=== PATIENT | male | born 2005 | race Caucasian/White ===

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

== ENCOUNTER 2023-08-24 03:32 | Emergency (ER) | payer OTHER ==
[2023-08-24 03:44] VITALS: RESP 18; TEMP 99.6
[2023-08-24] MEDS: KETOROLAC 15 MG/ML 1 ML VIAL IM STA (04:08)
--- NOTE | 2023-08-24 04:15 | ED ---
General Adult HPI - General Chief complaint: Nausea/Vomiting/Diarrhea Stated complaint: leg pain N/V/D Time Seen by Provider: 08/24/23 03:36 Source: patient, RN notes reviewed, old records reviewed Mode of arrival: ambulatory Limitations: no limitations - History of Present Illness Initial comments: 18-year-old male presenting for evaluation of cough, congestion, fever and myalgia. Patient additionally had episode of vomiting. 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 He has had productive cough and sore throat. He complains of myalgia predominantly in the low back and bilateral legs. - Related Data Home Medications Medication Instructions Recorded Confirmed Lisdexamfetamine Dimesylate 30 mg PO QAM 03/03/18 07/07/18 [Vyvanse] Allergies Allergy/AdvReac Type Severity Reaction Status Date / Time No Known Allergies Allergy Verified 08/24/23 03:42 Review of Systems ROS Statement: Those systems with pertinent positive or pertinent negative responses have been documented in the HPI. ROS Other: All systems not noted in ROS Statement are negative. Past Medical History Past Medical History: No Reported History Additional Past Medical History / Comment(s): hershsprung History of Any Multi-Drug Resistant Organisms: None Reported Additional Past Surgical History / Comment(s): colostomy- reversed Past Psychological History: Anxiety, Depression, No Psychological Hx Reported Smoking Status: Never smoker Past Alcohol Use History: None Reported Past Drug Use History: None Reported General Exam Limitations: no limitations General appearance: alert, in no apparent distress Head exam: Present: atraumatic, normocephalic Eye exam: Present: normal appearance, PERRL ENT exam: Present: normal exam Neck exam: Present: normal inspection. Absent: tenderness, meningismus Respiratory exam: Present: normal lung sounds bilaterally. Absent: respiratory distress, wheezes Cardiovascular Exam: Present: regular rate, normal rhythm GI/Abdominal exam: Present: soft, tenderness (Mild left lower quadrant). Absent: distended, guarding Extremities exam: Present: normal inspection, normal capillary refill. Absent: pedal edema, calf tenderness Neurological exam: Present: alert, oriented X3, CN II-XII intact. Absent: motor sensory deficit Psychiatric exam: Present: normal affect, normal mood Skin exam: Present: warm, dry, intact. Absent: cyanosis, diaphoretic Course Vital Signs 08/24/23 03:39 Temperature 99.6 F Pulse Rate 93 Respiratory 18 Rate Blood Pressure 134/90 O2 Sat by Pulse 100 Oximetry Medical Decision Making - Medical Decision Making Was pt. sent in by a medical professional or institution (KAY Mohamud, [employer] GATH[employer]ER, urgent care, hospital, or residential...) When possible be specific @ -No Did you speak to anyone other than the patient for history (EMS, parent, family, police, friend...)? What history was obtained from this source @ -No Did you review nursing and triage notes (agree or disagree)? Why? @ -I reviewed and agree with nursing and triage notes Were old charts reviewed (outside hosp., previous admission, EMS record, old EKG, old radiological studies, urgent care reports/EKG's, residential records)? Report findings @ -No old charts were reviewed Differential Diagnosis (chest pain, altered mental status, abdominal pain women, abdominal pain men, vaginal bleeding, weakness, fever, dyspnea, syncope, headache, dizziness, GI bleed, back pain, seizure, CVA, palpatations, mental health, musculoskeletal)? @Gastroenteritis, influenza, pharyngitis, pneumonia EKG interpreted by me (3pts min.). @ -As above X-rays interpreted by me (1pt min.). @ -Chest x-ray negative for focal pneumonia, no acute findings. CT interpreted by me (1pt min.). @ -None done U/S interpreted by me (1pt. min.). @ -None done What testing was considered but not performed or refused? (CT, X-rays, U/S, labs)? Why? @ -None What meds were considered but not given or refused? Why? @ -None Did you discuss the management of the patient with other professionals (professionals i.e. KAY Mohamud, K[employer] GATHERER, lab, RT, psych nurse, social service technician, psychosocial rehabilitation counselor, teacher, information assurance officer, employment evaluator/case manager)? Give summary @ -No Was smoking cessation discussed for >3mins.? @ -No Was critical care preformed (if so, how long)? @ -No Were there social determinants of health that impacted care today? How? (Homelessness, low income, unemployed, alcoholism, drug addiction, transportation, low edu. Level, literacy, decrease access to med. care, [place] [facility], rehab)? @ -No Was there de-escalation of care discussed even if they declined (Discuss DNR or withdrawal of care, Hospice)? DNR status @ -No What co-morbidities impacted this encounter? (DM, HTN, Smoking, COPD, CAD, Cancer, CVA, ARF, Chemo, Hep., AIDS, mental health diagnosis, sleep apnea, morbid obesity)? @ -None Was patient admitted / discharged? Hospital course, mention meds given and route, prescriptions, significant lab abnormalities, going to OR and other pertinent info. @ -18-year-old male presenting with congestion, sore throat, cough, nausea vom iting. Patient well-appearing with stable vitals, patient does test negative for influenza, coronavirus. CBC is unremarkable. CMP within normal limits. His urinalysis is negative for infection. Chest x-ray negative for focal pneumonia, no acute findings. Strep swab negative. Undiagnosed new problem with uncertain prognosis? @ -No Drug Therapy requiring intensive monitoring for toxicity (Heparin, Nitro, Insulin, Cardizem)? @ -No Were any procedures done? @ -No Diagnosis/symptom? @ -Nausea vomiting, likely viral syndrome Acute, or Chronic, or Acute on Chronic? @ -Acute Uncomplicated (without systemic symptoms) or Complicated (systemic symptoms)? @ -Default Side effects of treatment? @ -No Exacerbation, Progression, or Severe Exacerbation? @ -No Poses a threat to life or bodily function? How? (Chest pain, [place], [place], pneumonia, PE, COPD, DKA, ARF, appy, cholecystitis, CVA, Diverticulitis, Homicidal, Suicidal, threat to staff... and all critical care pts) @Low risk at this time - Lab Data Result diagrams: 08/24/23 04:36 08/24/23 04:36 Lab Results 08/24/23 08/24/23 08/24/23 Range/Units 03:45 04:36 04:36 WBC 9.4 (4.0-11.0) k/uL RBC 4.79 (4.30-5.90) m/uL Hgb 15.3 (13.0-17.5) gm/dL Hct 43.7 (39.0-53.0) % MCV 91.1 (80.0-100.0) fL MCH 31.9 (25.0-35.0) pg MCHC 35.0 (31.0-37.0) g/dL RDW 11.8 (11.5-15.5) % Plt Count 230 (150-450) k/uL MPV 8.4 Neutrophils % 71 % Lymphocytes % 18 % Monocytes % 6 % Eosinophils % 2 % Basophils % 1 % Neutrophils # 6.6 (1.3-7.7) k/uL Lymphocytes # 1.6 (1.0-4.8) k/uL Monocytes # 0.6 (0-1.0) k/uL Eosinophils # 0.2 (0-0.7) k/uL Basophils # 0.1 (0-0.2) k/uL Sodium (137-145) mmol/L Potassium (3.5-5.1) mmol/L Chloride (98-107) mmol/L Carbon Dioxide (22-30) mmol/L Anion Gap mmol/L BUN (9-20) mg/dL Creatinine (0.66-1.25) mg/dL Est GFR (CKD-EPI)AfAm (>60 ml/min/1.73 sqM) Est GFR (CKD-EPI)NonAf (>60 ml/min/1.73 sqM) Glucose (74-99) mg/dL Calcium (8.4-10.2) mg/dL Total Bilirubin (0.2-1.3) mg/dL AST (17-59) U/L ALT (4-49) U/L Alkaline Phosphatase (38-126) U/L Total Protein (6.3-8.2) g/dL Albumin (3.5-5.0) g/dL Urine Color Light Yellow Urine Appearance Clear (Clear) Urine pH 7.0 (5.0-8.0) Ur Specific [place] 1.022 (1.001-1.035) Urine Protein Negative (Negative) Urine Glucose (UA) Negative (Negative) Urine Ketones Negative (Negative) Urine Blood Negative (Negative) Urine Nitrite Negative (Negative) Urine Bilirubin Negative (Negative) Urine Urobilinogen <2.0 (<2.0) mg/dL Ur Leukocyte Esterase Negative (Negative) Influenza Type A (PCR) Not Detected (Not Detectd) Influenza Type B (PCR) Not Detected (Not Detectd) RSV (PCR) Not Detected (Not Detectd) SARS-CoV-2 (PCR) Not Detected (Not Detectd) Group A Strep (PCR) (Not Detectd) 08/24/23 08/24/23 Range/Units 04:36 04:36 WBC (4.0-11.0) k/uL RBC (4.30-5.90) m/uL Hgb (13.0-17.5) gm/dL Hct (39.0-53.0) % MCV (80.0-100.0) fL MCH (25.0-35.0) pg MCHC (31.0-37.0) g/dL RDW (11.5-15.5) % Plt Count (150-450) k/uL MPV Neutrophils % % Lymphocytes % % Monocytes % % Eosinophils % % Basophils % % Neutrophils # (1.3-7.7) k/uL Lymphocytes # (1.0-4.8) k/uL Monocytes # (0-1.0) k/uL Eosinophils # (0-0.7) k/uL Basophils # (0-0.2) k/uL Sodium 140 (137-145) mmol/L Potassium 3.7 (3.5-5.1) mmol/L Chloride 104 (98-107) mmol/L Carbon Dioxide 26 (22-30) mmol/L Anion Gap 10 mmol/L BUN 13 (9-20) mg/dL Creatinine 0.78 (0.66-1.25) mg/dL Est GFR (CKD-EPI)AfAm >90 (>60 ml/min/1.73 sqM) Est GFR (CKD-EPI)NonAf >90 (>60 ml/min/1.73 sqM) Glucose 82 (74-99) mg/dL Calcium 9.1 (8.4-10.2) mg/dL Total Bilirubin 0.5 (0.2-1.3) mg/dL AST 27 (17-59) U/L ALT 32 (4-49) U/L Alkaline Phosphatase 56 (38-126) U/L Total Protein 7.0 (6.3-8.2) g/dL Albumin 4.2 (3.5-5.0) g/dL Urine Color Urine Appearance (Clear) Urine pH (5.0-8.0) Ur Specific [place] (1.001-1.035) Urine Protein (Negative) Urine Glucose (UA) (Negative) Urine Ketones (Negative) Urine Blood (Negative) Urine Nitrite (Negative) Urine Bilirubin (Negative) Urine Urobilinogen (<2.0) mg/dL Ur Leukocyte Esterase (Negative) Influenza Type A (PCR) (Not Detectd) Influenza Type B (PCR) (Not Detectd) RSV (PCR) (Not Detectd) SARS-CoV-2 (PCR) (Not Detectd) Group A Strep (PCR) NOT DETECTED (Not Detectd) Disposition Clinical Impression: Nausea & vomiting, Viral syndrome Disposition: HOME SELF-CARE Condition: Good Instructions (If sedation given, give patient instructions): Acute Nausea and Vomiting (ED), Viral Syndrome (ED) Is patient prescribed a controlled substance at d/c from ED?: No Referrals: None,Stated [Primary Care Provider] - 1-2 days Tessy Hugo MD [STAFF PHYSICIAN] - 1-2 days Time of Disposition: 06:32
[2023-08-24] MEDS: ONDANSETRON 4 MG/2 ML VIAL IVP STA (04:45)
[2023-08-24] MEDS: SODIUM CHLORIDE 0.9% 1,000 ML IV ONE (04:45)
[2023-08-24 04:57] LABS: Basophils # (A) 0.1 k/uL (0-0.2); Basophils % (A) 1 %; Eosinophils # (A) 0.2 k/uL (0-0.7); Eosinophils % (A) 2 %; HCT 43.7 % (39.0-53.0); HGB 15.3 gm/dL (13.0-17.5); Lymphocytes # (A) 1.6 k/uL (1.0-4.8); Lymphocytes % (A) 18 %; MCH 31.9 pg (25.0-35.0); MCV 91.1 fL (80.0-100.0); Mean Platelet Volume 8.4; Monocytes # (A) 0.6 k/uL (0-1.0); Monocytes % (A) 6 %; Neutrophils # (A) 6.6 k/uL (1.3-7.7); Neutrophils % (A) 71 %; Platelet Count 230 k/uL (150-450); RBC 4.79 m/uL (4.30-5.90); RDW 11.8 % (11.5-15.5); WBC 9.4 k/uL (4.0-11.0)
[2023-08-24 05:06] LABS: ALT 32 U/L (4-49); AST 27 U/L (17-59); African American GFR (CKD) >90 (>60 ml/min/1.73 sqM); Albumin 4.2 g/dL (3.5-5.0); Alkaline Phosphatase 56 U/L (38-126); Anion Gap 10 mmol/L; Appearance,Urine Clear (Clear); Bilirubin,Urine Negative (Negative); Blood Urea Nitrogen 13 mg/dL (9-20); Blood,Urine Negative (Negative); Calcium 9.1 mg/dL (8.4-10.2); Carbon Dioxide 26 mmol/L (22-30); Chloride 104 mmol/L (98-107); Color,Urine Light Yellow; Glucose 82 mg/dL (74-99); Glucose,Urine (UA) Negative (Negative); Ketones,Urine Negative (Negative); Leukocyte Esterase,Urine Negative (Negative); Nitrite,Urine Negative (Negative); Non-African American GFR(CKD) >90 (>60 ml/min/1.73 sqM); Potassium 3.7 mmol/L (3.5-5.1); Protein,Urine Negative (Negative); Sodium 140 mmol/L (137-145); Specific Gravity,Urine 1.022 (1.001-1.035); Total Bilirubin 0.5 mg/dL (0.2-1.3); Urobilinogen,Urine <2.0 mg/dL (<2.0)
[2023-08-24 06:57] VITALS: BP 118/80; PULSE 79
--- NOTE | 2023-08-24 07:21 | XR ---
EXAMINATION TYPE: XR chest 2V DATE OF EXAM: 08/24/2023 COMPARISON: None HISTORY: 18-year-old male with cough TECHNIQUE: PA and lateral views FINDINGS: The cardiomediastinal silhouette, aorta, and pulmonary vasculature are within normal limits. Minimal central peribronchial cuffing. Otherwise, lungs and pleural spaces are clear. IMPRESSION: Minimal central peribronchial cuffing could reflect bronchitis or asthma. Otherwise, no acute cardiop ulmonary process.
== END 2023-08-24 06:46 | disposition home or self-care (01) ==
LOC: EC 03:32
DX: B34.9 Viral infection, unspecified (principal); R10.32 Left lower quadrant pain
CPT/HCPCS: 36415; 87651; 80053; 85025; 81003; 87636; 71046; 99284; 96374; 96361; 96372; J2405; J1885

== ENCOUNTER 2024-03-20 14:27 | Emergency (ER) | payer OTHER ==
[2024-03-20 14:35] VITALS: RESP 18
[2024-03-20 15:13] LABS: Basophils % (A) 0 %; Eosinophils # (A) 0.1 k/uL (0-0.7); Eosinophils % (A) 1 %; HCT 42.3 % (39.0-53.0); HGB 14.7 gm/dL (13.0-17.5); Lymphocytes % (A) 25 %; MCH 31.5 pg (25.0-35.0); MCHC 34.7 g/dL (31.0-37.0); MCV 90.6 fL (80.0-100.0); Mean Platelet Volume 8.6; Monocytes # (A) 0.6 k/uL (0-1.0); Monocytes % (A) 7 %; Neutrophils # (A) 5.1 k/uL (1.3-7.7); Neutrophils % (A) 63 %; Platelet Count 265 k/uL (150-450); RBC 4.67 m/uL (4.30-5.90); RDW 12.1 % (11.5-15.5); WBC 8.1 k/uL (3.8-10.6)
--- NOTE | 2024-03-20 15:15 | ED ---
General Adult HPI - General Chief complaint: Chest Pain Stated complaint: Chest Pain Time Seen by Provider: 03/20/24 14:30 Source: patient, RN notes reviewed Mode of arrival: EMS Limitations: no limitations - History of Present Illness Initial comments: Patient is a 19-year-old male presenting to the emergency department with concerns for chest discomfort. Onset of symptoms was around 1 hour ago. Patient was in an argument with his brother. Patient also drinks too many energy drinks. Patient had 2 so far today as well as 3 coffees. Patient states symptoms have essentially resolved at this time. Patient questions if he may have had a mini stroke years ago when he had an episode of racing heart rate and almost passed out however had no neurological problems otherwise. - Related Data Home Medications Medication Instructions Recorded Confirmed No Known Home Medications 03/20/24 03/20/24 Allergies Allergy/AdvReac Type Severity Reaction Status Date / Time No Known Allergies Allergy Verified 03/20/24 15:49 Review of Systems ROS Statement: Those systems with pertinent positive or pertinent negative responses have been documented in the HPI. ROS Other: All systems not noted in ROS Statement are negative. Constitutional: Denies: fever Eyes: Denies: eye pain ENT: Denies: ear pain Respiratory: Denies: cough, dyspnea Cardiovascular: Reports: as per HPI Endocrine: Denies: fatigue Gastrointestinal: Denies: abdominal pain Musculoskeletal: Denies: back pain Psychiatric: Denies: suicidal thoughts Past Medical History Past Medical History: No Reported History Additional Past Medical History / Comment(s): hershsprung History of Any Multi-Drug Resistant Organisms: None Reported Additional Past Surgical History / Comment(s): colostomy- reversed Past Psychological History: Anxiety, Depression, No Psychological Hx Reported Smoking Status: Never smoker Past Alcohol Use History: None Reported Past Drug Use History: None Reported General Exam Limitations: no limitations General appearance: alert, in no apparent distress Head exam: Present: normocephalic Eye exam: Present: normal appearance, PERRL, EOMI Neck exam: Present: normal inspection Respiratory exam: Present: normal lung sounds bilaterally Cardiovascular Exam: Present: regular rate, normal rhythm, normal heart sounds Expanded Peripheral pulses: 2+: Radial (R), Radial (L), Posterior Tibialis (R), Posterior Tibialis (L) GI/Abdominal exam: Present: soft. Absent: tenderness Extremities exam: Present: normal inspection. Absent: pedal edema, calf tenderness Neurological exam: Present: alert, oriented X3, CN II-XII intact. Absent: motor sensory deficit Expanded Sensory exam: Upper Extremity Light Touch: Normal, Lower Extremity Light Touch: Normal Motor strength exam: RUE: 5, LUE: 5, RLE: 5, LLE: 5 Psychiatric exam: Present: normal affect, normal mood. Absent: suicidal ideation Skin exam: Present: normal color Course Vital Signs 03/20/24 03/20/24 03/20/24 14:28 14:36 16:11 Temperature 99.0 F Pulse Rate 71 95 Pulse Rate [ 74 Business Services Intern ] Respiratory 18 18 Rate Blood Pressure 146/93 125/77 O2 Sat by Pulse 98 98 Oximetry EKG Findings - EKG Results: EKG: interpreted by RAFAELD, sinus rhythm, normal axis, normal QRS, normal ST/T Medical Decision Making - Medical Decision Making Discussion with patient regarding his mental health. Patient does admit to being depressed. Patient denies suicidal ideation and states he would not harm himself. Patient contracts for safety and is willing to follow-up. Was pt. sent in by a medical professional or institution (, PA, RE[employer] OR WIND INSTRUMENT REPAIRER, urgent care, hospital, or [place] [facility]...) When possible be specific @ -No Did you speak to anyone other than the patient for history (EMS, parent, family, police, friend...)? What history was obtained from this source @ -Family is present and helps confirm and is present during discussion regar ding patient's mental health, see above Did you review nursing and triage notes (agree or disagree)? Why? @ -I reviewed and agree with nursing and triage notes Were old charts reviewed (outside hosp., previous admission, EMS record, old EKG, old radiological studies, urgent care reports/EKG's, [place] [facility] records)? Report findings @ -No old charts were reviewed Differential Diagnosis (chest pain, altered mental status, abdominal pain women, abdominal pain men, vaginal bleeding, weakness, fever, dyspnea, syncope, headache, dizziness, GI bleed, back pain, seizure, CVA, palpatations, mental health, musculoskeletal)? @ -Differential Chest Pain: Stable Angina, Unstable Angina, STEMI, NSTEMI Aortic Dissection, Pneumothorax, Musculoskeletal, Esophageal Spasm GERD, Cholecystitis, Pancreatitis, Zoster, this is not meant to be an all-inclusive list. EKG interpreted by me (3pts min.). @ -As above X-rays interpreted by me (1pt min.). @ -None done CT interpreted by me (1pt min.). @ -None done U/S interpreted by me (1pt. min.). @ -None done What testing was considered but not performed or refused? (CT, X-rays, U/S, labs)? Why? @ -None What meds were considered but not given or refused? Why? @ -None Did you discuss the management of the patient with other professionals (shant patton i.e. , PA, RE[employer] WIND INSTRUMENT REPAIRER, lab, RT, psych nurse, social work job titles, national service officer, teacher, ground nuclear weapons assembly officer, case mgr)? Give summary @ -No Was smoking cessation discussed for >3mins.? @ -No Was critical care preformed (if so, how long)? @ -No Were there social determinants of health that impacted care today? How? (Homelessness, low income, unemployed, alcoholism, drug addiction, transportation, low edu. Level, literacy, decrease access to med. care, snf, rehab)? @ -No Was there de-escalation of care discussed even if they declined (Discuss DNR or withdrawal of care, Hospice)? DNR status @ -No What co-morbidities impacted this encounter? (DM, HTN, Smoking, COPD, CAD, Cancer, CVA, ARF, Chemo, Hep., AIDS, mental health diagnosis, sleep apnea, morbid obesity)? @ -None Was patient admitted / discharged? Hospital course, mention meds given and route, prescriptions, significant lab abnormalities, going to OR and other pertinent info. @ -Patient presents with chest discomfort following an argument. Evaluation unremarkable. Patient is symptom-free. Patient will be discharged and recommended follow-up. Patient and family updated Undiagnosed new problem with uncertain prognosis? @ -No Drug Therapy requiring intensive monitoring for toxicity (Heparin, Nitro, Insulin, Cardizem)? @ -No Were any procedures done? @ -No Diagnosis/symptom? @ -Chest pain Acute, or Chronic, or Acute on Chronic? @ -Acute Uncomplicated (without systemic symptoms) or Complicated (systemic symptoms)? @ -Default Side effects of treatment? @ -No Exacerbation, Progression, or Severe Exacerbation? @ -No Poses a threat to life or bodily function? How? (Chest pain, [place], [place], pneumonia, PE, COPD, DKA, ARF, appy, cholecystitis, CVA, Diverticulitis, Homicidal, Suicidal, threat to staff... and all critical care pts) @ -No - Lab Data Result diagrams: 03/20/24 15:02 03/20/24 15:02 Lab Results 03/20/24 03/20/24 03/20/24 Range/Units 15:02 15:02 15:02 WBC 8.1 (3.8-10.6) k/uL RBC 4.67 (4.30-5.90) m/uL Hgb 14.7 (13.0-17.5) gm/dL Hct 42.3 (39.0-53.0) % MCV 90.6 (80.0-100.0) fL MCH 31.5 (25.0-35.0) pg MCHC 34.7 (31.0-37.0) g/dL RDW 12.1 (11.5-15.5) % Plt Count 265 (150-450) k/uL MPV 8.6 Neutrophils % 63 % Lymphocytes % 25 % Monocytes % 7 % Eosinophils % 1 % Basophils % 0 % Neutrophils # 5.1 (1.3-7.7) k/uL Lymphocytes # 2.0 (1.0-4.8) k/uL Monocytes # 0.6 (0-1.0) k/uL Eosinophils # 0.1 (0-0.7) k/uL Basophils # 0.0 (0-0.2) k/uL PT 11.0 (10.0-12.5) sec INR 1.0 (<1.2) APTT 25.7 (22.0-30.0) sec D-Dimer (<0.60) mg/L FEU Sodium 138 (137-145) mmol/L Potassium 3.4 L (3.5-5.1) mmol/L Chloride 102 (98-107) mmol/L Carbon Dioxide 25 (22-30) mmol/L Anion Gap 11 mmol/L BUN 14 (9-20) mg/dL Creatinine 0.83 (0.66-1.25) mg/dL Est GFR (CKD-EPI)AfAm >90 (>60 ml/min/1.73 sqM) Est GFR (CKD-EPI)NonAf >90 (>60 ml/min/1.73 sqM) Glucose 108 H (74-99) mg/dL Calcium 9.5 (8.4-10.2) mg/dL Magnesium 1.9 (1.6-2.3) mg/dL Total Bilirubin 0.7 (0.2-1.3) mg/dL AST 27 (17-59) U/L ALT 17 (4-49) U/L Alkaline Phosphatase 51 (38-126) U/L Troponin I (0.000-0.034) ng/mL Total Protein 7.1 (6.3-8.2) g/dL Albumin 4.5 (3.5-5.0) g/dL 03/20/24 03/20/24 Range/Units 15:02 15:02 WBC (3.8-10.6) k/uL RBC (4.30-5.90) m/uL Hgb (13.0-17.5) gm/dL Hct (39.0-53.0) % MCV (80.0-100.0) fL MCH (25.0-35.0) pg MCHC (31.0-37.0) g/dL RDW (11.5-15.5) % Plt Count (150-450) k/uL MPV Neutrophils % % Lymphocytes % % Monocytes % % Eosinophils % % Basophils % % Neutrophils # (1.3-7.7) k/uL Lymphocytes # (1.0-4.8) k/uL Monocytes # (0-1.0) k/uL Eosinophils # (0-0.7) k/uL Basophils # (0-0.2) k/uL PT (10.0-12.5) sec INR (<1.2) APTT (22.0-30.0) sec D-Dimer 0.18 (<0.60) mg/L FEU Sodium (137-145) mmol/L Potassium (3.5-5.1) mmol/L Chloride (98-107) mmol/L Carbon Dioxide (22-30) mmol/L Anion Gap mmol/L BUN (9-20) mg/dL Creatinine (0.66-1.25) mg/dL Est GFR (CKD-EPI)AfAm (>60 ml/min/1.73 sqM) Est GFR (CKD-EPI)NonAf (>60 ml/min/1.73 sqM) Glucose (74-99) mg/dL Calcium (8.4-10.2) mg/dL Magnesium (1.6-2.3) mg/dL Total Bilirubin (0.2-1.3) mg/dL AST (17-59) U/L ALT (4-49) U/L Alkaline Phosphatase (38-126) U/L Troponin I <0.012 (0.000-0.034) ng/mL Total Protein (6.3-8.2) g/dL Albumin (3.5-5.0) g/dL Disposition Clinical Impression: Chest pain Disposition: HOME SELF-CARE Condition: Stable Instructions (If sedation given, give patient instructions): Chest Pain (ED) Additional Instructions: Please do follow-up with your primary care physician in the next day or 2 for recheck. Also discussed with your primary care physician and therapist for possible psychiatry evaluation or referral. Return for increased chest pain, heart rate, difficulty breathing, thoughts of harming yourself, worsening symptoms or any other concerns. Is patient prescribed a controlled substance at d/c from ED?: No Referrals: Bryant Duarte MD [STAFF PHYSICIAN] - 1-2 days Forms: Outpatient Therapy List, Outpatient Counseling, Community Resources, Area PCPs Time of Disposition: 17:43
[2024-03-20 15:24] LABS: Partial Thromboplastin Time 25.7 sec (22.0-30.0)
[2024-03-20 15:33] LABS: ALT 17 U/L (4-49); AST 27 U/L (17-59); African American GFR (CKD) >90 (>60 ml/min/1.73 sqM); Albumin 4.5 g/dL (3.5-5.0); Alkaline Phosphatase 51 U/L (38-126); Anion Gap 11 mmol/L; Blood Urea Nitrogen 14 mg/dL (9-20); Calcium 9.5 mg/dL (8.4-10.2); Carbon Dioxide 25 mmol/L (22-30); Chloride 102 mmol/L (98-107); Glucose 108 mg/dL (74-99); Magnesium 1.9 mg/dL (1.6-2.3); Non-African American GFR(CKD) >90 (>60 ml/min/1.73 sqM); Potassium 3.4 mmol/L (3.5-5.1); Sodium 138 mmol/L (137-145); Total Bilirubin 0.7 mg/dL (0.2-1.3); Total Protein 7.1 g/dL (6.3-8.2)
--- NOTE | 2024-03-20 16:07 | XR ---
EXAMINATION TYPE: XR chest 2V DATE OF EXAM: 03/20/2024 COMPARISON: 08/24/2023 HISTORY: Chest pain TECHNIQUE: Frontal and lateral views of the chest are obtained. FINDINGS: There is no focal air space opacity, pleural effusion, or pneumothorax seen. The cardiac silhouette size is within normal limits. The osseous structures are intact. IMPRESSION: No acute cardiopulmonary process. [facility], , 03/20/2024 4:05 PM
[2024-03-20 18:20] VITALS: BP 129/64; PULSE 67; TEMP 97.8
== END 2024-03-20 18:18 | disposition home or self-care (01) ==
LOC: EC 14:27
DX: R07.9 Chest pain, unspecified (principal)
CPT/HCPCS: 36415; 71046; 80053; 83735; 84484; 85025; 85379; 85610; 85730; 93005; 99285

== ENCOUNTER 2024-04-19 09:26 | Emergency (ER) | payer OTHER ==
[2024-04-19 09:33] VITALS: TEMP 97.9
[2024-04-19] MEDS: SODIUM CHLORIDE 0.9% 1,000 ML IV STA (09:44)
[2024-04-19 09:50] LABS: Basophils % (A) 0 %; Eosinophils # (A) 0.1 k/uL (0-0.7); Eosinophils % (A) 2 %; HGB 15.3 gm/dL (13.0-17.5); Lymphocytes % (A) 25 %; MCH 31.1 pg (25.0-35.0); MCHC 33.9 g/dL (31.0-37.0); MCV 91.6 fL (80.0-100.0); Mean Platelet Volume 7.9; Monocytes # (A) 0.6 k/uL (0-1.0); Monocytes % (A) 7 %; Neutrophils # (A) 4.9 k/uL (1.3-7.7); Neutrophils % (A) 62 %; Platelet Count 267 k/uL (150-450); RBC 4.92 m/uL (4.30-5.90); RDW 11.8 % (11.5-15.5); WBC 7.9 k/uL (3.8-10.6)
[2024-04-19] MEDS: MECLIZINE 25 MG TAB PO STA (09:50)
[2024-04-19 09:51] VITALS: RESP 18
[2024-04-19 10:06] LABS: ALT 19 U/L (4-49); AST 29 U/L (17-59); African American GFR (CKD) >90 (>60 ml/min/1.73 sqM); Albumin 4.4 g/dL (3.5-5.0); Alkaline Phosphatase 60 U/L (38-126); Anion Gap 8 mmol/L; Blood Urea Nitrogen 15 mg/dL (9-20); Calcium 9.1 mg/dL (8.4-10.2); Carbon Dioxide 26 mmol/L (22-30); Chloride 103 mmol/L (98-107); Glucose 79 mg/dL (74-99); Non-African American GFR(CKD) >90 (>60 ml/min/1.73 sqM); Potassium 3.4 mmol/L (3.5-5.1); Sodium 137 mmol/L (137-145); Total Bilirubin 0.8 mg/dL (0.2-1.3); Total Protein 7.1 g/dL (6.3-8.2)
--- NOTE | 2024-04-19 10:51 | ED ---
Dizziness HPI - General Chief Complaint: Dizziness Stated Complaint: Weakness Time Seen by Provider: 04/19/24 09:29 Source: patient, EMS, RN notes reviewed Mode of arrival: EMS Limitations: no limitations - History of Present Illness Initial Comments: 19-year-old male presents emergency department complaint of dizziness. 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 Patient states that states the room was spinning. It is worse with movement. Patient states he had some palpitations mild chest comfort which is improved. Patient has a history of Hirschsprung's with colostomy and reversal. Patient does admit that has been up for 38 hours straight between 2 jobs and may be fatigue induced. Patient denies any excessive caffeine use. He states he drinks 1 Mountain Dew. - Related Data Previous Rx's Medication Instructions Recorded Meclizine [Antivert] 25 mg PO TID PRN #15 tab 04/19/24 Allergies Allergy/AdvReac Type Severity Reaction Status Date / Time No Known Allergies Allergy Verified 04/19/24 09:34 Review of Systems ROS Statement: Those systems with pertinent positive or pertinent negative responses have been documented in the HPI. ROS Other: All systems not noted in ROS Statement are negative. Past Medical History Past Medical History: No Reported History, Myocardial Infarction ([place]) Additional Past Medical History / Comment(s): hershsprung History of Any Multi-Drug Resistant Organisms: None Reported Additional Past Surgical History / Comment(s): colostomy- reversed Past Psychological History: Anxiety, Depression, No Psychological Hx Reported Smoking Status: Never smoker Past Alcohol Use History: None Reported Past Drug Use History: None Reported General Exam Limitations: no limitations General appearance: alert, in no apparent distress Head exam: Present: atraumatic, normocephalic, normal inspection Eye exam: Present: normal appearance, PERRL, EOMI. Absent: scleral icterus, conjunctival injection, periorbital swelling ENT exam: Present: normal exam, normal oropharynx, mucous membranes moist Neck exam: Present: normal inspection, full ROM. Absent: tenderness, meningismus, lymphadenopathy Respiratory exam: Present: normal lung sounds bilaterally. Absent: respiratory distress, wheezes, rales, rhonchi, stridor Cardiovascular Exam: Present: regular rate, normal rhythm, normal heart sounds. Absent: systolic murmur, diastolic murmur, rubs, gallop, clicks Neurological exam: Present: alert, oriented X3, CN II-XII intact, reflexes normal. Absent: motor sensory deficit Skin exam: Present: warm, dry, intact, normal color. Absent: rash Course Vital Signs 04/19/24 04/19/24 09:29 09:48 Temperature 97.9 F Pulse Rate 63 70 Respiratory 19 18 Rate Blood Pressure 145/71 129/91 O2 Sat by Pulse 98 99 Oximetry EKG Findings - EKG Comments: EKG Findings:: EKG performed at 9: 38 sinus rhythm rate of 62 VT 150 QRS 109 QT/QTc 377/382 - EKG Results: EKG: interpreted by [facility] Medical Decision Making - Medical Decision Making Was pt. sent in by a medical professional or institution (, PA, SOLAR ENERGY SPECIALIST, urgent care, hospital, or group home...) When possible be specific @ -Urgent care Did you speak to anyone other than the patient for history (EMS, parent, family, police, friend...)? What history was obtained from this source @ -No Did you review nursing and triage notes (agree or disagree)? Why? @ -I reviewed and agree with nursing and triage notes Were old charts reviewed (outside hosp., previous admission, EMS record, old EKG, old radiological studies, urgent care reports/EKG's, group home records)? Report findings @ -No old charts were reviewed Differential Diagnosis (chest pain, altered mental status, abdominal pain women, abdominal pain men, vaginal bleeding, weakness, fever, dyspnea, syncope, headache, dizziness, GI bleed, back pain, seizure, CVA, palpatations, mental health, musculoskeletal)? @ -Differential Dizziness: Benign paroxysmal positional Vertigo, Meniere's disease, otitis media, acoustic neuroma, vertebrobasilar insufficiency, cerebellar stroke, encephalitis, hypovolemic, arrhythmia, coronary artery syndrome, anemia, this is not meant to be an all-inclusive list EKG interpreted by me (3pts min.). @ -As above X-rays interpreted by me (1pt min.). @ -None done CT interpreted by me (1pt min.). @ -None done U/S interpreted by me (1pt. min.). @ -None done What testing was considered but not performed or refused? (CT, X-rays, U/S, caren rodriguez)? Why? @ -None What meds were considered but not given or refused? Why? @ -None Did you discuss the management of the patient with other professionals (professionals i.e. , PA, SOLAR ENERGY SPECIALIST, lab, RT, psych nurse, social media content manager, principal investigator, teacher, chief financial officer, binder caser)? Give summary @ -No Was smoking cessation discussed for >3mins.? @ -No Was critical care preformed (if so, how long)? @ -No Were there social determinants of health that impacted care today? How? (Homelessness, low income, unemployed, alcoholism, drug addiction, transportation, low edu. Level, literacy, decrease access to med. care, longterm, rehab)? @ -No Was there de-escalation of care discussed even if they declined (Discuss DNR or withdrawal of care, Hospice)? DNR status @ -No What co-morbidities impacted this encounter? (DM, HTN, Smoking, COPD, CAD, Cancer, CVA, ARF, Chemo, Hep., AIDS, mental health diagnosis, sleep apnea, morbid obesity)? @ -None Was patient admitted / discharged? Hospital course, mention meds given and route, prescriptions, significant lab abnormalities, going to OR and other pertinent info. @ -Charge patient presented for lightheadedness and dizziness. This may be vertigo in nature. He is currently asymptomatic. Patient's laboratory studies unremarkable. Patient blood pressure is unremarkable. Patient does feel improved at this time. Patient discharged in stable condition return parameters discussed Undiagnosed new problem with uncertain prognosis? @ -No Drug Therapy requiring intensive monitoring for toxicity (Heparin, Nitro, Insulin, Cardizem)? @ -No Were any procedures done? @ -No Diagnosis/symptom? @ -Dizziness Acute, or Chronic, or Acute on Chronic? @ -Acute Uncomplicated (without systemic symptoms) or Complicated (systemic symptoms)? @ -Uncomplicated Side effects of treatment? @ -No Exacerbation, Progression, or Severe Exacerbation? @ -No Poses a threat to life or bodily function? How? (Chest pain, [place], [place], pneumonia, PE, COPD, DKA, ARF, appy, cholecystitis, CVA, Diverticulitis, Homicidal, Suicidal, threat to staff... and all critical care pts) @ -No - Lab Data Result diagrams: 04/19/24 09:42 04/19/24 09:42 Lab Results 04/19/24 04/19/24 04/19/24 Range/Units 09:42 09:42 09:42 WBC 7.9 (3.8-10.6) k/uL RBC 4.92 (4.30-5.90) m/uL Hgb 15.3 (13.0-17.5) gm/dL Hct 45.0 (39.0-53.0) % MCV 91.6 (80.0-100.0) fL MCH 31.1 (25.0-35.0) pg MCHC 33.9 (31.0-37.0) g/dL RDW 11.8 (11.5-15.5) % Plt Count 267 (150-450) k/uL MPV 7.9 Neutrophils % 62 % Lymphocytes % 25 % Monocytes % 7 % Eosinophils % 2 % Basophils % 0 % Neutrophils # 4.9 (1.3-7.7) k/uL Lymphocytes # 2.0 (1.0-4.8) k/uL Monocytes # 0.6 (0-1.0) k/uL Eosinophils # 0.1 (0-0.7) k/uL Basophils # 0.0 (0-0.2) k/uL Sodium 137 (137-145) mmol/L Potassium 3.4 L (3.5-5.1) mmol/L Chloride 103 (98-107) mmol/L Carbon Dioxide 26 (22-30) mmol/L Anion Gap 8 mmol/L BUN 15 (9-20) mg/dL Creatinine 0.70 (0.66-1.25) mg/dL Est GFR (CKD-EPI)AfAm >90 (>60 ml/min/1.73 sqM) Est GFR (CKD-EPI)NonAf >90 (>60 ml/min/1.73 sqM) Glucose 79 (74-99) mg/dL Calcium 9.1 (8.4-10.2) mg/dL Magnesium 2.0 (1.6-2.3) mg/dL Total Bilirubin 0.8 (0.2-1.3) mg/dL AST 29 (17-59) U/L ALT 19 (4-49) U/L Alkaline Phosphatase 60 (38-126) U/L Troponin I <0.012 (0.000-0.034) ng/mL Total Protein 7.1 (6.3-8.2) g/dL Albumin 4.4 (3.5-5.0) g/dL Disposition Clinical Impression: Dizziness Disposition: HOME SELF-CARE Condition: Stable Instructions (If sedation given, give patient instructions): Dizziness (ED) Additional Instructions: Please return to the Emergency Department if symptoms worsen or any other concerns. Prescriptions: Meclizine [Antivert] 25 mg PO TID PRN #15 tab PRN Reason: Vertigo Is patient prescribed a controlled substance at d/c from ED?: No Referrals: None,Stated [Primary Care Provider] - 1-2 days Time of Disposition: 10:50
[2024-04-19 11:06] VITALS: BP 127/78; PULSE 75
== END 2024-04-19 11:06 | disposition home or self-care (01) ==
LOC: EC 09:26
DX: R42 Dizziness and giddiness (principal)
CPT/HCPCS: 36415; 80053; 83735; 84484; 85025; 93005; 96360; 99284; 99285

== ENCOUNTER 2024-07-31 18:45 | Emergency (ER) | payer OTHER ==
[2024-07-31 18:53] VITALS: BP 160/97; PULSE 92; RESP 20; TEMP 98.3
[2024-07-31 19:18] LABS: Basophils # (A) 0.1 k/uL (0-0.2); Basophils % (A) 1 %; Eosinophils # (A) 0.1 k/uL (0-0.7); Eosinophils % (A) 1 %; HCT 47.6 % (39.0-53.0); HGB 16.5 gm/dL (13.0-17.5); Lymphocytes # (A) 2.5 k/uL (1.0-4.8); Lymphocytes % (A) 27 %; MCHC 34.7 g/dL (31.0-37.0); MCV 92.2 fL (80.0-100.0); Mean Platelet Volume 7.7; Monocytes # (A) 0.4 k/uL (0-1.0); Monocytes % (A) 4 %; Neutrophils # (A) 6.2 k/uL (1.3-7.7); Neutrophils % (A) 65 %; Platelet Count 259 k/uL (150-450); RBC 5.16 m/uL (4.30-5.90); RDW 12.2 % (11.5-15.5); WBC 9.5 k/uL (3.8-10.6)
--- NOTE | 2024-07-31 19:26 | ED ---
General Adult HPI - General Source: patient, family, RN notes reviewed Mode of arrival: ambulatory Limitations: no limitations <Krissy Yo - Last Filed: 07/31/24 19:41> <Shauna Jerome - Last Filed: 08/08/24 19:52> - General Chief complaint: Chest Pain Stated complaint: Syncope,SOB,L arm pain Time Seen by Provider: 07/31/24 19:26 - History of Present Illness Initial comments: Quick note: 19-year-old male presented to ER for evaluation of syncope. Patient states he was at work at [employer] today when attempting to lift a tire in a squatted position patient reports he felt a fuzzy vision sensation and passed out. He is unsure of head injury and unknown downtime. No blood thinner use. Patient states since then he has been feeling shortness of breath with a tingling sensation to his left upper extremity. (Krissy Yo) 19-year-old male presenting with chief complaint of chest pain. Patient was at work when he had a syncopal episode around 1400 today. He states that this happened when he was trying to lift a tire from a squatted position. No blood thinners. States that just prior he was getting some blurred vision. When he came to he was having some chest pain and difficulty catching his breath. He was also having paresthesia in his extremities. He went to a friend's house who had an inhaler and tried to use it but states that this did not alleviate his p ain. Describes it as a sharp pain. Not made worse with deep breaths or coughing. No lower extremity swelling. No recent surgery or long travel. No nausea vomiting or abdominal pain. No cough congestion or sore throat. No fevers or chills. (Shauna Jerome) - Related Data Previous Rx's Medication Instructions Recorded Meclizine [Antivert] 25 mg PO TID PRN #15 tab 04/19/24 Allergies Allergy/AdvReac Type Severity Reaction Status Date / Time No Known Allergies Allergy Verified 04/19/24 09:34 Review of Systems ROS Other: All systems not noted in ROS Statement are negative. <Krissy Yo - Last Filed: 07/31/24 19:41> ROS Other: All systems not noted in ROS Statement are negative. <Shauna Jerome - Last Filed: 08/08/24 19:52> ROS Statement: Those systems with pertinent positive or pertinent negative responses have been documented in the HPI. Past Medical History Past Medical History: No Reported History, Chest Pain / Angina Additional Past Medical History / Comment(s): hershsprung History of Any Multi-Drug Resistant Organisms: None Reported Additional Past Surgical History / Comment(s): colostomy- reversed Past Psychological History: Anxiety, Depression, No Psychological Hx Reported Smoking Status: Never smoker Past Alcohol Use History: None Reported Past Drug Use History: None Reported <Krissy Yo - Last Filed: 07/31/24 19:41> General Exam Limitations: no limitations <Krissy Yo - Last Filed: 07/31/24 19:41> Limitations: no limitations General appearance: alert, in no apparent distress Head exam: Present: atraumatic, normocephalic, normal inspection Eye exam: Present: normal appearance, EOMI. Absent: periorbital swelling Neck exam: Present: normal inspection. Absent: meningismus Respiratory exam: Present: normal lung sounds bilaterally. Absent: respiratory distress, wheezes, rales, rhonchi, stridor Cardiovascular Exam: Present: regular rate, normal rhythm, normal heart sounds. Absent: systolic murmur, diastolic murmur, rubs, gallop, clicks Extremities exam: Absent: pedal edema Neurological exam: Present: alert, oriented X3 Expanded Eye Response: (4) open spontaneously Motor Response: (6) obeys commands Verbal Response: (5) oriented Milo Total: 15 Psychiatric exam: Present: normal affect, normal mood Skin exam: Present: warm, dry <Shauna Jerome - Last Filed: 08/08/24 19:52> - General Exam Comments Initial Comments: Visual Physical Exam Vital signs reviewed General: Well-appearing, nontoxic, no acute distress. Head: Normocephalic, atraumatic Eyes: PERRLA, EOMI ENT: Airway patent Chest: Nonlabored breathing Skin: No visual rash, normal skin tone Neuro: Alert and oriented 3 Musculoskeletal: No gross abnormalities (Krissy Yo) Course Vital Signs 07/31/24 18:49 Temperature 98.3 F Pulse Rate 92 Respiratory 20 Rate Blood Pressure 160/97 O2 Sat by Pulse 98 Oximetry Medical Decision Making - Lab Data Result diagrams: 07/31/24 19:04 07/31/24 19:04 <Krissy Yo - Last Filed: 07/31/24 19:41> - Lab Data Result diagrams: 07/31/24 19:04 07/31/24 19:04 <Shauna Jerome - Last Filed: 08/08/24 19:52> - Medical Decision Making I performed the quick note portion of this chart. Electronically signed by Krissy Yo PA-C (Krissy Yo) Was pt. sent in by a medical professional or institution (KAY Mohamud, COLUMNIST, urgent care, hospital, or skilled nursing...) When possible be specific @ -No Did you speak to anyone other than the patient for history (EMS, parent, family, police, friend...)? What history was obtained from this source @ -No Did you review nursing and triage notes (agree or disagree)? Why? @ -I reviewed and agree with nursing and triage notes Were old charts reviewed (outside hosp., previous admission, EMS record, old EKG, old radiological studies, urgent care reports/EKG's, skilled nursing records)? Report findings @ -No old charts were reviewed Differential Diagnosis (chest pain, altered mental status, abdominal pain women, abdominal pain men, vaginal bleeding, weakness, fever, dyspnea, syncope, headache, dizziness, GI bleed, back pain, seizure, CVA, palpatations, mental health, musculoskeletal)? @ -MDM Differential Chest Pain: Stable Angina, Unstable Angina, STEMI, NSTEMI Aortic Dissection, Pneumothorax, Musculoskeletal, Esophageal Spasm GERD, Cholecystitis, Pancreatitis, Zoster This is not meant to be an all-inclusive list. EKG interpreted by me (3pts min.). @ -EKG shows sinus rhythm ventricular rate 81. SC interval 136. QRS 110. QT 337. QTc 374. X-rays interpreted by me (1pt min.). @ -Chest x-ray shows no acute process CT interpreted by me (1pt min.). @ -CT brain shows no acute intracranial process. U/S interpreted by me (1pt. min.). @ -None done What testing was considered but not performed or refused? (CT, X-rays, U/S, labs)? Why? @ -The plan was to admit the patient for cardiology consult and trending troponins. Patient then abruptly requested removal of his IV and eloped from the ER What meds were considered but not given or refused? Why? @ -None Did you discuss the management of the patient with other professionals (professionals i.e. , PA, COLUMNIST, lab, RT, psych nurse, social services aide, liquid waste treatment plant operator, teacher, booking officer, patient case manager)? Give summary @ -No Was smoking cessation discussed for >3mins.? @ -No Was critical care preformed (if so, how long)? @ -No Were there social determinants of health that impacted care today? How? (Homelessness, low income, unemployed, alcoholism, drug addiction, transportation, low edu. Level, literacy, decrease access to med. care, [facility], rehab)? @ -No Was there de-escalation of care discussed even if they declined (Discuss DNR or withdrawal of care, Hospice)? DNR status @ -No What co-morbidities impacted this encounter? (DM, HTN, Smoking, COPD, CAD, Cancer, CVA, ARF, Chemo, Hep., AIDS, mental health diagnosis, sleep apnea, morbid obesity)? @ -None Was patient admitted / discharged? Hospital course, mention meds given and route, prescriptions, significant lab abnormalities, going to OR and other pertinent info. @ -19-year-old male presenting with chief complaint of chest pain. Patient states he was at work today lifting a tire when he had a syncopal episode. When he woke up he was complaining of chest pain and difficulty catching his breath. Workup is initiated by triage. No leukocytosis or anemia. Negative troponin and D-dimer. Potassium 3.4. Remainder of labs are grossly unremarkable. Negative CT of the brain and chest x-ray shows no acute process. EKG shows sinus rhythm. Patient is later placed in room and evaluated by myself. Heart and lungs are clear to auscultation. Patient is educated on today's findings. Patient and his father would prefer admission. Patient is evaluated by my attending Dr. Hu and case is discussed. Patient will be admitted for observation and cardiology consult, he is agreeable with this plan. Patient later then abruptly requests nurse to remove his IV. He then eloped from the ER prior to any further discussion. He is of sound mind and body and able to make his own decisions. Undiagnosed new problem with uncertain prognosis? @ -No Drug Therapy requiring intensive monitoring for toxicity (Heparin, Nitro, Insulin, Cardizem)? @ -No Were any procedures done? @ -No Diagnosis/symptom? @ -Chest pain Acute, or Chronic, or Acute on Chronic? @ -Acute Uncomplicated (without systemic symptoms) or Complicated (systemic symptoms)? @ -complicated Side effects of treatment? @ -No Exacerbation, Progression, or Severe Exacerbation? @ -No (Shauna Jerome) - Lab Data Lab Results 07/31/24 07/31/24 07/31/24 Range/Units 19:04 19:04 19:04 WBC 9.5 (3.8-10.6) k/uL RBC 5.16 (4.30-5.90) m/uL Hgb 16.5 (13.0-17.5) gm/dL Hct 47.6 (39.0-53.0) % MCV 92.2 (80.0-100.0) fL MCH 32.0 (25.0-35.0) pg MCHC 34.7 (31.0-37.0) g/dL RDW 12.2 (11.5-15.5) % Plt Count 259 (150-450) k/uL MPV 7.7 Neutrophils % 65 % Lymphocytes % 27 % Monocytes % 4 % Eosinophils % 1 % Basophils % 1 % Neutrophils # 6.2 (1.3-7.7) k/uL Lymphocytes # 2.5 (1.0-4.8) k/uL Monocytes # 0.4 (0-1.0) k/uL Eosinophils # 0.1 (0-0.7) k/uL Basophils # 0.1 (0-0.2) k/uL PT 11.5 (10.0-12.5) sec INR 1.1 (<1.2) APTT 25.0 (22.0-30.0) sec D-Dimer (<0.60) mg/L FEU Sodium 138 (137-145) mmol/L Potassium 3.4 L (3.5-5.1) mmol/L Chloride 100 (98-107) mmol/L Carbon Dioxide 29 (22-30) mmol/L Anion Gap 9 mmol/L BUN 13 (9-20) mg/dL Creatinine 0.74 (0.66-1.25) mg/dL Est GFR (CKD-EPI)AfAm >90 (>60 ml/min/1.73 sqM) Est GFR (CKD-EPI)NonAf >90 (>60 ml/min/1.73 sqM) Glucose 98 (74-99) mg/dL Calcium 10.1 (8.4-10.2) mg/dL Magnesium 2.0 (1.6-2.3) mg/dL Total Bilirubin 0.9 (0.2-1.3) mg/dL AST 26 (17-59) U/L ALT 22 (4-49) U/L Alkaline Phosphatase 47 (38-126) U/L Troponin I (0.000-0.034) ng/mL Total Protein 7.8 (6.3-8.2) g/dL Albumin 4.9 (3.5-5.0) g/dL 07/31/24 07/31/24 Range/Units 19:04 19:04 WBC (3.8-10.6) k/uL RBC (4.30-5.90) m/uL Hgb (13.0-17.5) gm/dL Hct (39.0-53.0) % MCV (80.0-100.0) fL MCH (25.0-35.0) pg MCHC (31.0-37.0) g/dL RDW (11.5-15.5) % Plt Count (150-450) k/uL MPV Neutrophils % % Lymphocytes % % Monocytes % % Eosinophils % % Basophils % % Neutrophils # (1.3-7.7) k/uL Lymphocytes # (1.0-4.8) k/uL Monocytes # (0-1.0) k/uL Eosinophils # (0-0.7) k/uL Basophils # (0-0.2) k/uL PT (10.0-12.5) sec INR (<1.2) APTT (22.0-30.0) sec D-Dimer <0.17 (<0.60) mg/L FEU Sodium (137-145) mmol/L Potassium (3.5-5.1) mmol/L Chloride (98-107) mmol/L Carbon Dioxide (22-30) mmol/L Anion Gap mmol/L BUN (9-20) mg/dL Creatinine (0.66-1.25) mg/dL Est GFR (CKD-EPI)AfAm (>60 ml/min/1.73 sqM) Est GFR (CKD-EPI)NonAf (>60 ml/min/1.73 sqM) Glucose (74-99) mg/dL Calcium (8.4-10.2) mg/dL Magnesium (1.6-2.3) mg/dL Total Bilirubin (0.2-1.3) mg/dL AST (17-59) U/L ALT (4-49) U/L Alkaline Phosphatase (38-126) U/L Troponin I <0.012 (0.000-0.034) ng/mL Total Protein (6.3-8.2) g/dL Albumin (3.5-5.0) g/dL Disposition <Krissy Yo - Last Filed: 07/31/24 19:41> Is patient prescribed a controlled substance at d/c from ED?: No Time of Disposition: 23:21 <Shauna Jerome - Last Filed: 08/08/24 19:52> Clinical Impression: Chest pain Disposition: LEFT AGAINST MEDICAL ADVICE Condition: Undetermined Referrals: None,Stated [Primary Care Provider] - 1-2 days Rafael Mcgraw MD [STAFF PHYSICIAN] - 1-2 days Forms: Area PCPs
[2024-07-31 19:37] LABS: ALT 22 U/L (4-49); AST 26 U/L (17-59); African American GFR (CKD) >90 (>60 ml/min/1.73 sqM); Albumin 4.9 g/dL (3.5-5.0); Alkaline Phosphatase 47 U/L (38-126); Anion Gap 9 mmol/L; Blood Urea Nitrogen 13 mg/dL (9-20); Calcium 10.1 mg/dL (8.4-10.2); Carbon Dioxide 29 mmol/L (22-30); Chloride 100 mmol/L (98-107); Glucose 98 mg/dL (74-99); Non-African American GFR(CKD) >90 (>60 ml/min/1.73 sqM); Potassium 3.4 mmol/L (3.5-5.1); Sodium 138 mmol/L (137-145); Total Bilirubin 0.9 mg/dL (0.2-1.3); Total Protein 7.8 g/dL (6.3-8.2)
[2024-07-31 19:46] LABS: INR 1.1 (<1.2); Prothrombin Time 11.5 sec (10.0-12.5)
--- NOTE | 2024-07-31 20:18 | XR ---
EXAMINATION TYPE: XR chest 2V DATE OF EXAM: 07/31/2024 7:31 PM COMPARISON: 03/20/2024 CLINICAL INDICATION: Male, 19 years old with history of Chest Pain, TECHNIQUE: XR chest 2V view(s) obtained. FINDINGS: The heart size is normal. The pulmonary vasculature is normal. The lungs are clear. IMPRESSION: 1. No acute pulmonary process. [facility], , 07/31/2024 8:16 PM
--- NOTE | 2024-07-31 20:20 | CT ---
EXAMINATION TYPE: CT brain wo con DATE OF EXAM: 07/31/2024 8:03 PM COMPARISON: 07/07/2018 CLINICAL INDICATION: Male, 19 years old with history of syncope unknown head injury, Chest pain incre ase pain with breathing syncope at 1400 today. TECHNIQUE: CT of the brain is performed utilizing 3 mm thick sections through the posterior fossa and 3 mm thick sections through the remaining calvarium. Study is performed within 24 hours of arrival to the hospital. Contrast used: mL of , (none if empty) CT DLP: 1125.4 mGycm, Automated exposure control for dose reduction was used. FINDINGS: No abnormal hyperdensity is present to suggest an acute intracranial hemorrhage. No mass lesion is evident. No acute infarcts are evident. Ventricles and sulci are appropriate for the patient age. Paranasal sinuses and mastoid air cells within the [id number] are clear. IMPRESSION: 1. No acute intracranial process. Follow up MRI can be performed as clinically indicated. [facility], , 07/31/2024 8:17 PM
== END 2024-07-31 21:19 | disposition left against medical advice (07) ==
LOC: EC 18:45
DX: R07.9 Chest pain, unspecified (principal); Z53.21 Procedure and treatment not carried out due to patient leaving prior to being seen by health care provider
CPT/HCPCS: 36415; 70450; 71046; 80053; 83735; 84484; 85025; 85379; 85610; 85730; 93005; 99285

== ENCOUNTER 2024-08-13 07:12 | Inpatient (IN) | payer MEDICAID, OTHER ==
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
[2024-08-13 10:10] LABS: Amphetamine Screen,Urine Not Detected (NotDetected); Barbiturate Screen,Urine Not Detected (NotDetected); Benzodiazepines Screen,Urine Not Detected (NotDetected); Cocaine Screen,Urine Not Detected (NotDetected); Methadone Screen, Urine Not Detected (NotDetected); Opiate Screen,Urine Not Detected (NotDetected); Oxycodone Screen, Urine Not Detected (NotDetected); Phencyclidine Screen,Urine Not Detected (NotDetected); Tricyclic Antidepressant,Urine Not Detected (NotDetected); Urn Cannabinoid Scrn Not Detected (NotDetected)
[2024-08-13] MEDS: ZIPRASIDONE 20 MG VIAL IM STA (17:22)
[2024-08-13] MEDS ORDERED: LORazepam 2 MG/ML INJ IM PRN (20:32)
[2024-08-13] MEDS ORDERED: LORazepam 1 MG TAB PO PRN (20:32)
[2024-08-13] MEDS ORDERED: MAG HYDROX/AL HYDROX/SIMETH 355 ML BOTTLE PO PRN (20:32)
[2024-08-13] MEDS ORDERED: haloperidoL 5 MG TAB PO PRN (20:32)
[2024-08-13] MEDS ORDERED: IBUPROFEN 600 MG TAB PO PRN (20:32)
[2024-08-13] MEDS ORDERED: ACETAMINOPHEN TAB 325 MG TAB PO PRN (20:32)
[2024-08-13] MEDS ORDERED: HALOPERIDOL LACTATE 5 MG/ML 1 ML VIAL IM PRN (20:32)
[2024-08-13] MEDS ORDERED: MAGNESIUM HYDROXIDE 2,400 MG/30 ML CUP PO PRN (20:32)
[2024-08-14] MEDS: NICOTINE 14MG/24HR PATCH TRANSDERM SCH (09:20)
[2024-08-14 10:17] VITALS: RESP 16
[2024-08-14 10:36] LABS: Basophils % (A) 0 %; Eosinophils # (A) 0.1 k/uL (0-0.7); Eosinophils % (A) 2 %; HCT 52.6 % (39.0-53.0); HGB 16.9 gm/dL (13.0-17.5); Lymphocytes % (A) 31 %; MCH 30.6 pg (25.0-35.0); MCHC 32.1 g/dL (31.0-37.0); MCV 95.2 fL (80.0-100.0); Mean Platelet Volume 7.9; Monocytes # (A) 0.4 k/uL (0-1.0); Monocytes % (A) 6 %; Neutrophils # (A) 3.7 k/uL (1.3-7.7); Neutrophils % (A) 57 %; Platelet Count 240 k/uL (150-450); RBC 5.53 m/uL (4.30-5.90); RDW 12.2 % (11.5-15.5); WBC 6.6 k/uL (3.8-10.6)
[2024-08-14 10:41] LABS: ALT 25 U/L (4-49); AST 24 U/L (17-59); African American GFR (CKD) >90 (>60 ml/min/1.73 sqM); Albumin 4.6 g/dL (3.5-5.0); Alkaline Phosphatase 46 U/L (38-126); Anion Gap 8 mmol/L; Blood Urea Nitrogen 15 mg/dL (9-20); Calcium 9.9 mg/dL (8.4-10.2); Carbon Dioxide 33 mmol/L (22-30); Chloride 98 mmol/L (98-107); Glucose 92 mg/dL (74-99); Non-African American GFR(CKD) >90 (>60 ml/min/1.73 sqM); Potassium 4.5 mmol/L (3.5-5.1); Sodium 139 mmol/L (137-145); Total Bilirubin 1.2 mg/dL (0.2-1.3); Total Protein 7.6 g/dL (6.3-8.2)
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
[2024-08-14 16:34] LABS: Chol/HDL Ratio 3.07 Ratio; LDL Cholesterol,Calculated 94.3 mg/dL (0.0-131.0)
[2024-08-14] MEDS: SERTRALINE 50 MG TAB PO SCH (20:34)
--- NOTE | 2024-08-15 03:23 | P.MDCNMH ---
History of Present Illness H&P Date: 08/15/24 19-year-old male with history of past medical and for evaluation of suicidal ideation patient denies any suicidal ideation he reports that he is going through difficult social time lost his girlfriend and job and he decided to move out of state however one of his family members was concerned about his wellbeing notified police and brought him to the hospital for evaluation RN indicated that patient has history of autism otherwise it was difficult to obtain any history from the patient review of systems Pertinent positives as noted in HPI. All other systems were reviewed and are negative on exam Constitutional: No acute distress, Eyes: Anicteric sclerae, moist conjunctiva, Pupils equal round reactive to light Lungs: Clear to auscultation Clear to percussion Normal respiratory effort, no accessory muscle use Cardiovascular: Heart regular in rate and rhythm, No murmurs, gallops, or rubs No peripheral edema Abdominal: Soft Nontender, no guarding, rebound or rigidity Abdomen moving with respiration Normoactive bowel sounds Psychiatric: Alert and cooperative Neuro Muscles Strength 5/5 in all 4 extremities Past Medical History Past Medical History: Chest Pain / Angina Additional Past Medical History / Comment(s): hershsprung History of Any Multi-Drug Resistant Organisms: None Reported Past Surgical History: Bowel Resection Additional Past Surgical History / Comment(s): colostomy- reversed Past Anesthesia/Blood Transfusion Reactions: No Reported Reaction Past Psychological History: Anxiety, Depression Smoking Status: Never smoker Past Alcohol Use History: Occasional Past Drug Use History: None Reported - Past Family History Father History Unknown: Yes Additional Family Medical History / Comment(s): patient adopted Mother History Unknown: Yes Additional Family Medical History / Comment(s): patient adopted Medications and Allergies Home Medications Medication Instructions Recorded Confirmed Type No Known Home Medications 08/13/24 08/13/24 History Allergies Allergy/AdvReac Type Severity Reaction Status Date / Time Mushroom Allergy Unknown Verified 08/13/24 17:10 Physical Exam Vitals: Vital Signs Temp Pulse Resp BP Pulse Ox 08/14/24 20:34 98.0 F 77 16 129/80 98 08/14/24 10:15 97.8 F 81 16 124/87 100 Cranial Nerve Examination - Cranial Nerves Cranial Nerve II- Optic: Intact Cranial Nerve III- Oculomotor: Intact Cranial Nerve IV- Trochlear: Intact Cranial Nerve V- Trigeminal: Intact Cranial Nerve - Abducens: Intact Cranial Nerve VII- Facial: Intact Cranial Nerve VIII- Auditory: Intact Cranial Nerve IX- Glossopharyngeal: Intact Cranial Nerve X- Vagus: Intact Cranial Nerve XI- Accessory: Intact Cranial Nerve XII- Hypoglossal: Intact Results CBC & Chem 7: 08/14/24 09:58 08/14/24 09:58 Labs: Abnormal Lab Results - Last 24 Hours (Table) 08/14/24 Range/Units 09:58 Carbon Dioxide 33 H (22-30) mmol/L Assessment and Plan Assessment: Suicidal ideation Management per psych Stable otherwise from medical standpoint Blood work reviewed overall unremarkable Thank you for this consultation
--- NOTE | 2024-08-15 12:55 | P.PN ---
Progress Note - Text Progress Note Date: 08/15/24 Interval history: Patient was seen today for psychiatric evaluation. He was able to speak to wr rinku in his office today. States that he has been mainly keeping himself, going to some groups. Claims that he is been taking the medications reports improvement in his mood today, claims he does have have some anxiety. He was asking for potential discharge dates. He was fairly vague about his reasons for coming to the hospital and is planned to go to [place]. Claims that he has been sleeping fairly, denying any issues with appetite at this time. Denying any suicidal homicidal ideations intent or plan denying any auditory or visual hallucinations. Not reporting any side effects at this time. MENTAL STATUS EXAM: General Appearance: Patient appears to have longer hair, be stated age, well- nourished, dressed in hospital gown, zamora, average hygiene and grooming. Behavior: Patient is seated without any agitated behavior. Attempts to cooperate Speech: Patient's speech is fluent and non-pressured. Soft tone Mood/Affect: Patient reports his mood is improving mildly, affect is congruent and constricted. Improving mildly Suicidality/Homicidality: Patient denies having any homicidal ideation intent or plan. Denies any current suicidal ideation, intent or plan Perceptions: Patient denies any visual hallucinations and denies any auditory hallucinations. Though content/process: There is no evidence of any delusional thought content and thought process is linear and goal-directed. Memory and concentration: AOX3, grossly intact for the purposes of this session Judgment and insight: Proving mildly IMPRESSIONS: Unspecified depressive disorder Unspecified anxiety disorder Trauma and/or stressor related disorder, r/o PTSD PLAN: -Patient is admitted under petition/cert status to [facility] for stabilization of psychiatric symptoms and safety. Patient has signed adult voluntary form and medication consent and is placed in patient's chart. -Medications: Continue with Zoloft 50 mg daily mood/anxiety. -Will order EKG today -Ativan and Haldol PRN for agitation/aggression -NRT - not needed since he does not smoke daily -SW on board for discharge planning. Encourage patient to participate in groups to work on coping skills. Likely discharge in 2 to 3 days if patient is impro ving. He will be going back to his foster parents home.
--- NOTE | 2024-08-16 10:09 | P.PN ---
Progress Note - Text Progress Note Date: 08/16/24 Interval history: Patient was seen today for psychiatric evaluation. He was able to speak to wr rinku in his office today. Patient appears to have improvement in hygiene and grooming. He was fairly concrete today answer questions appropriately. Claims that he is doing better, was just in group today. States that his mood and anxiety have been improving. Is not reporting any issues with his medications at this time continue to take his Zoloft. States that he was able to sleep fairly last night. We spoke briefly about discharge planning, he states that he is okay being discharged tomorrow. Claims that he did have the EKG done yesterday. Claims that he has been sleeping fairly, denying any issues with appetite at this time. Denying any suicidal homicidal ideations intent or plan denying any auditory or visual hallucinations. Not reporting any side effects at this time. MENTAL STATUS EXAM: General Appearance: Patient appears to have longer hair, be stated age, well- nourished, dressed in hospital gown, zamora, average hygiene and grooming. Behavior: Patient is seated without any agitated behavior. Attempts to cooperate Speech: Patient's speech is fluent and non-pressured. Soft tone, improving mildly Mood/Affect: Patient reports his mood is improving mildly, affect is congruent and constricted. Improving mildly Suicidality/Homicidality: Patient denies having any homicidal ideation intent or plan. Denies any current suicidal ideation, intent or plan Perceptions: Patient denies any visual hallucinations and denies any auditory hallucinations. Though content/process: There is no evidence of any delusional thought content and thought process is linear and goal-directed. Poverty of content Memory and concentration: AOX3, grossly intact for the purposes of this session Judgment and insight: improving mildly IMPRESSIONS: Unspecified depressive disorder Unspecified anxiety disorder Trauma and/or stressor related disorder, r/o PTSD PLAN: -Patient is admitted under petition/cert status to [facility] for stabilization of psychiatric symptoms and safety. Patient has signed adult voluntary form and medication consent and is placed in patient's chart. -Medications: Continue with Zoloft 50 mg daily mood/anxiety. -EKG will be reviewed by data analyst report writer -[facility] and [facility] for agitation/aggression -NRT - not needed since he does not smoke daily -SW on board for discharge planning. Encourage patient to participate in groups to work on coping skills. Likely discharge tomorrow if patient is improving. He will be going back to his foster parents home.
--- NOTE | 2024-08-17 02:52 | P.MDCNMH ---
History of Present Illness H&P Date: 08/15/24 19-year-old male with history of past medical and for evaluation of suicidal ideation patient denies any suicidal ideation he reports that he is going through difficult social time lost his girlfriend and job and he decided to move out of state however one of his family members was concerned about his wellbeing notified police and brought him to the hospital for evaluation review of systems Pertinent positives as noted in HPI. All other systems were reviewed and are negative on exam Constitutional: No acute distress, Eyes: Anicteric sclerae, moist conjunctiva, Pupils equal round reactive to light Lungs: Clear to auscultation Clear to percussion Normal respiratory effort, no accessory muscle use Cardiovascular: Heart regular in rate and rhythm, No murmurs, gallops, or rubs No peripheral edema Abdominal: Soft Nontender, no guarding, rebound or rigidity Abdomen moving with respiration Normoactive bowel sounds Psychiatric: Alert and cooperative Neuro Muscles Strength 5/5 in all 4 extremities Suicidal ideation Management per psych Stable otherwise from medical standpoint Blood work reviewed overall unremarkable Thank you for this consultation Past Medical History Past Medical History: Chest Pain / Angina Additional Past Medical History / Comment(s): hersprung History of Any Multi-Drug Resistant Organisms: None Reported Past Surgical History: Bowel Resection Additional Past Surgical History / Comment(s): colostomy- reversed Past Anesthesia/Blood Transfusion Reactions: No Reported Reaction Past Psychological History: Anxiety, Depression Smoking Status: Never smoker Past Alcohol Use History: Occasional Past Drug Use History: None Reported - Past Family History Father History Unknown: Yes Additional Family Medical History / Comment(s): patient adopted Mother History Unknown: Yes Additional Family Medical History / Comment(s): patient adopted Medications and Allergies Home Medications Medication Instructions Recorded Confirmed Type No Known Home Medications 08/13/24 08/13/24 History Allergies Allergy/AdvReac Type Severity Reaction Status Date / Time Mushroom Allergy Unknown Verified 08/13/24 17:10 Physical Exam Vitals: Vital Signs Temp Pulse Resp BP Pulse Ox 08/16/24 22:52 98.1 F 61 16 117/70 97 08/16/24 09:30 97.3 F L 84 16 142/88 97 Cranial Nerve Examination - Cranial Nerves Cranial Nerve II- Optic: Intact Cranial Nerve III- Oculomotor: Intact Cranial Nerve IV- Trochlear: Intact Cranial Nerve V- Trigeminal: Intact Cranial Nerve - Abducens: Intact Cranial Nerve VII- Facial: Intact Cranial Nerve VIII- Auditory: Intact Cranial Nerve IX- Glossopharyngeal: Intact Cranial Nerve X- Vagus: Intact Cranial Nerve XI- Accessory: Intact Cranial Nerve XII- Hypoglossal: Intact Results CBC & Chem 7: 08/14/24 09:58 08/14/24 09:58
[2024-08-17 08:43] VITALS: BP 120/82; PULSE 118; TEMP 96.9
--- NOTE | 2024-08-17 11:05 | P.DS ---
Providers Date of admission: 08/13/24 20:14 Expected date of discharge: 08/17/24 Attending physician: Johnathan Alvarez MD Consults: 08/13/24 20:32 Consult Physician Routine Consulting Provider: Susan Mendoza Consult Reason/Comments: H&P and medical Do you want consulting provider notified?: Yes Primary care physician: Stated None - Discharge Diagnosis(es) (1) Depressive disorder Current Visit: Yes Status: Acute Priority: High (2) Anxiety disorder Current Visit: Yes Status: Acute Priority: High (3) Trauma and stressor-related disorder Current Visit: Yes Status: Acute Priority: Medium Hospital Course: Admission HPI: Admission note was completed by Dr Ryan "patient is a 19 year old male with long history of childhood trauma who lives with his foster family. Per EPS assessment, "pt makes little to no eye contact during assessment. pt presents with monotone, soft voice and flat affect. pt states, "My brother was pretty worried about me. I needed some peace and quiet, so I sent a message saying I was going away for a little bit." pt denies SI, HI, and hallucinations. pt's brother, , was contacted to request further information. Per , pt had sent a text message to his family stating that "If you're reading this, then I'm already . I'm sorry I couldn't be stronger." When pt was asked about these text messages directly, pt refused to look at board writer before asking, "Can I have my brother sign off on the petition?" pt continues to be evasive and refuses to answer when asked questions directly regarding suicidal statements made to family. pt apparently recently lost 2 full-time jobs and had a break-up with his girlfriend. pt reportedly told family that he was going to go to [place] to complete suicide so that [place] the [place]. pt continues to be evasive regarding questions about these statements as well. 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 Text message sent "If u are reading this sadly I am gone, I love you all and I am sorry I wasn't strong enough." Today he claims he did not want to kill himself but that he wanted to "just leave everybody" and go to [place] where he doesn't know anybody. 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 He states he would like to reconnect with [facility] services. He tends to minimize his symptoms. He admits to worrying about his future. He had a history of anger problems from [age] yo, took anger management courses at [facility] and reports this helped. He has a history of childhood trauma. He denies nightmares currently but reports he had nightmares when younger. He admits he has a hard time trusting others, states he surveys his surroundings. Patient denies any suicidal or homicidal ideation, intent or plan. At this time, patient denies any auditory or visual hallucinations. Patient denies any flight of ideas racing thoughts and increased in goal directed behavior. He denies any current illicit drug use. He had used cannabis sporadically, but denies any use in 2 years. He drinks 1 beer every 2-3 weeks. He uses cigars once a month." Hospital course: Upon admission to the unit patient was directable and agreeable to commence treatment and signed adult voluntary form. Patient was initially depressed, anxious however with time and treatment patient got along well with other patients on the unit and followed unit protocol. Patient was compliant with the medications and denied any side effects throughout hospital course. Patient was started on Zoloft 50 mg daily for mood/anxiety. Patient spoke of his stressors and engaged in therapy both group/activity therapy. Patient was also seen by medical team for history and physical exam. Patient had an EKG done and was reviewed by board writer. Throughout the course of the hospitalization patient gradually improved with regards to mood, anxiety, sleep and became more future oriented with improved insight and judgment. On the day of discharge patient denied any suicidal or homicidal ideations intent or plan denied any auditory or visual hallucinations. Patient endorsed wanting to live for his future and his family. The patient denied any access to guns or weapons. Patient denied any paranoia and did not endorse any delusions. Patient does not have a significant history of substance abuse and was counseled on abstaining from all substances including alcohol and marijuana. Patient was also counseled on the medications and need for regular compliance and was encouraged to follow-up with their outpatient appointment for mental health and also for primary care. Prior to discharge a family meeting will be arranged by social worker clinical to answer any questions and ensure safety upon discharge incuding making sure that guns/weapons are either removed from the home or locked away. Mental status exam: General Appearance: Patient appears to be thin, zamora, stated age is alert, pleasant, and cooperative. Patient is in no acute distress and has improved hygiene and grooming Behavior: Patient is calmly seated without any agitated behavior. Speech: Patient's speech is fluent and nonpressured. Mood/Affect: Patient reports their mood is "good", affect is congruent Suicidality/Homicidality: Patient denies having any suicidal or homicidal ideation intent or plan. Perceptions: Patient denies any auditory or visual hallucinations. Though content/process: There is no evidence of any delusional thought content and thought process is linear and goal-directed. More future oriented Memory and concentration: AOX3, grossly intact for the purposes of this session. Can spell "WORLD" backwards correctly. Judgment and insight: improved with guarded prognosis Impression: Depressive disorder unspecified Anxiety disorder unspecified Trauma related stress disorder rule out PTSD Plan: -Continue with discharge today as patient has improved and stabilized psychiatrically and is not currently an imminent threat to themself and/or others. Patient will remain at chronically elevated risk for harm to self and/or others due to their impulsivity. -Continue medications: Zoloft 50 mg daily at bedtime for mood/anxiety -Patient was counseled on the need for medication compliance and appropriate follow-up at mental health and also primary care for medical issues. Patient verbalized understanding and agreed. -Social work to help coordinate patients discharge today. also to ensure safe home environment that guns/weapons are either removed from the home or locked away. Social work also to arrange for patients follow up appointments with [facility] for psychiatric care along with follow up with primary care provider. -Patient counseled on abstaining from recreational drugs and marijuana and alcohol. Was informed/educated on the adverse effects on their physical and mental health. Patient verbally agreed and understood. -Patient was instructed to return to the hospital or seek immediate medical care if their psychiatric or medical symptoms do worsen or reoccur. Allergies Allergy/AdvReac Type Severity Reaction Status Date / Time Mushroom Allergy Unknown Verified 08/13/24 17:10 Laboratory Results WBC 6.6 k/uL (3.8-10.6) 08/14/24 09:58 RBC 5.53 m/uL (4.30-5.90) 08/14/24 09:58 Hgb 16.9 gm/dL (13.0-17.5) 08/14/24 09:58 Hct 52.6 % (39.0-53.0) 08/14/24 09:58 MCV 95.2 fL (80.0-100.0) 08/14/24 09:58 MCH 30.6 pg (25.0-35.0) 08/14/24 09:58 MCHC 32.1 g/dL (31.0-37.0) 08/14/24 09:58 RDW 12.2 % (11.5-15.5) 08/14/24 09:58 Plt Count 240 k/uL (150-450) 08/14/24 09:58 MPV 7.9 08/14/24 09:58 Neutrophils % 57 % 08/14/24 09:58 Lymphocytes % 31 % 08/14/24 09:58 Monocytes % 6 % 08/14/24 09:58 Eosinophils % 2 % 08/14/24 09:58 Basophils % 0 % 08/14/24 09:58 Neutrophils # 3.7 k/uL (1.3-7.7) 08/14/24 09:58 Lymphocytes # 2.0 k/uL (1.0-4.8) 08/14/24 09:58 Monocytes # 0.4 k/uL (0-1.0) 08/14/24 09:58 Eosinophils # 0.1 k/uL (0-0.7) 08/14/24 09:58 Basophils # 0.0 k/uL (0-0.2) 08/14/24 09:58 Sodium 139 mmol/L (137-145) 08/14/24 09:58 Potassium 4.5 mmol/L (3.5-5.1) 08/14/24 09:58 Chloride 98 mmol/L (98-107) 08/14/24 09:58 Carbon Dioxide 33 mmol/L (22-30) H 08/14/24 09:58 Anion Gap 8 mmol/L 08/14/24 09:58 BUN 15 mg/dL (9-20) 08/14/24 09:58 Creatinine 1.05 mg/dL (0.66-1.25) 08/14/24 09:58 Est GFR (CKD-EPI)AfAm >90 (>60 ml/min/1.73 sqM) 08/14/24 09:58 Est GFR (CKD-EPI)NonAf >90 (>60 ml/min/1.73 sqM) 08/14/24 09:58 Glucose 92 mg/dL (74-99) 08/14/24 09:[address] Glu mg/dL 103 mg/dL 08/14/24 09:58 Hemoglobin A1c 5.2 % (<=6.0) 08/14/24 09:58 Calcium 9.9 mg/dL (8.4-10.2) 08/14/24 09:58 Total Bilirubin 1.2 mg/dL (0.2-1.3) 08/14/24 09:58 AST 24 U/L (17-59) 08/14/24 09:58 ALT 25 U/L (4-49) 08/14/24 09:58 Alkaline Phosphatase 46 U/L (38-126) 08/14/24 09:58 Total Protein 7.6 g/dL (6.3-8.2) 08/14/24 09:58 Albumin 4.6 g/dL (3.5-5.0) 08/14/24 09:58 Triglycerides 129.00 mg/dL (0.00-149.00) 08/14/24 09:58 Cholesterol 178.00 mg/dL (0.00-200.00) 08/14/24 09:58 LDL Cholesterol, Calc 94.3 mg/dL (0.0-131.0) 08/14/24 09:58 VLDL Cholesterol, Calc 25.80 mg/dL (5.00-40.00) 08/14/24 09:58 HDL Cholesterol 57.90 mg/dL (40.00-60.00) 08/14/24 09:58 Cholesterol/HDL Ratio 3.07 Ratio 08/14/24 09:58 TSH 1.630 mIU/L (0.465-4.680) 08/14/24 09:58 Urine Opiates Screen Not Detected (NotDetected) 08/13/24 09:29 Ur Oxycodone Screen Not Detected (NotDetected) 08/13/24 09:29 Urine Methadone Screen Not Detected (NotDetected) 08/13/24 09:29 Ur Barbiturates Screen Not Detected (NotDetected) 08/13/24 09:29 U Tricyclic Antidepress Not Detected (NotDetected) 08/13/24 09:29 Ur Phencyclidine Scrn Not Detected (NotDetected) 08/13/24 09:29 Ur Amphetamines Screen Not Detected (NotDetected) 08/13/24 09:29 U Methamphetamines Scrn Not Detected (NotDetected) 08/13/24 09:29 U Benzodiazepines Scrn Not Detected (NotDetected) 08/13/24 09:29 Urine Cocaine Screen Not Detected (NotDetected) 08/13/24 09:29 U Marijuana (THC) Screen Not Detected (NotDetected) 08/13/24 09:29 SARS-CoV-2 (PCR) Not Detected (Not Detectd) 08/13/24 16:27 Vital Signs Temp 96.9 F L 08/17/24 08:42 Pulse 118 H 08/17/24 08:42 Resp 16 08/17/24 08:42 BP 120/82 08/17/24 08:42 Pulse Ox 99 08/17/24 08:42 FiO2 Patient Condition at Discharge: Stable Plan - Discharge Summary Discharge Rx Participant: Yes New Discharge Prescriptions: New Sertraline [Zoloft] 50 mg PO HS 30 Days #30 tab Discharge Medication List Sertraline [Zoloft] 50 mg PO HS 30 Days #30 tab 08/17/24 [Rx] Follow up Appointment(s)/Referral(s): [facility] [REFERRING] - 1 Week Patient Instructions/Handouts: Depression (DC), Generalized Anxiety Disorder (ED) Activity/Diet/Wound Care/Special Instructions: U Discharge Info Avoid the use of street drugs and alcohol. Take all medications as prescribed. When you are in need of refills on your medications, please contact your outpatient medical provider and/or outpatient psychiatrist. Please go to your scheduled outpatient appointments for aftercare treatment. If symptoms return or become worse, call the crisis line at or and/or visit the nearest emergency room for assistance. National Suicide and Crisis Lifeline - call or text 988 Discharge Disposition: HOME SELF-CARE
== END 2024-08-17 12:33 | disposition home or self-care (01) | DRG 755 ==
LOC: EC 07:12 → 3MHU 20:14
PROVIDERS: ADMIT Psychiatry & Neurology Psychiatry; ATTEND Psychiatry & Neurology Psychiatry
DX: F43.21 Adjustment disorder with depressed mood (principal); Q43.1 Hirschsprung's disease; F32.A Depression, unspecified; R45.851 Suicidal ideations; F41.9 Anxiety disorder, unspecified; F90.9 Attention-deficit hyperactivity disorder, unspecified type; Z62.29 Other upbringing away from parents; Z56.0 Unemployment, unspecified; Z63.0 Problems in relationship with spouse or partner; Z63.79 Other stressful life events affecting family and household; Z91.51 Personal history of suicidal behavior; Z81.4 Family history of other substance abuse and dependence; Z81.1 Family history of alcohol abuse and dependence; Z62.810 Personal history of physical and sexual abuse in childhood
CPT/HCPCS: 80053; 80061; 80306; 82075; 83036; 84443; 85025; 87635; 93005; 96372; 99285